=== PATIENT | male | born 1980 | race Caucasian/White ===

== ENCOUNTER 2024-05-31 10:29 | Outpatient (REF) | payer OTHER, SELFPAY ==
--- NOTE | ~2024-05-31 | XR_ITS ---
EXAMINATION: XR CERVICAL SPINE CLINICAL INFORMATION: Radiculopathy, cervical region M54.12. COMPARISON: MR Cervical spine without contrast 09/27/2022 TECHNIQUE: AP and lateral views of the cervical spine, inclusive of flexion and extension views, were obtained. FINDINGS: The vertebral alignment is normal. No evidence of instability with flexion or extension. No intrinsic bony abnormality. Intervertebral disc spacer seen at the C5/6. The endplates and posterior elements are normal. No fracture or subluxation. The surrounding prevertebral soft tissues are unremarkable. XR/XR cervical spine 4V IMPRESSION: Intervertebral disc spacer at C5/6. No acute process. Electronically signed by: Theodore Montiel MD 06/18/2024 11:29 AM [facility]
== END 2024-05-31 10:30 | disposition home or self-care (01) ==
LOC: HO.HOSX 10:29
PROVIDERS: PCP Internal Medicine; Visit Provider Neurological Surgery
DX: M54.12 Radiculopathy, cervical region (principal); Z98.1 Arthrodesis status
CPT/HCPCS: 72050

== ENCOUNTER 2024-05-31 10:29 | Outpatient (AMB) | payer OTHER, SELFPAY ==
--- NOTE | 2024-05-31 10:32 | A.SPINEOV_ITS ---
Vital Signs 05/31/24 10:36 Height 5 ft 7 in Weight 200 lb BMI 31.3 Intake Visit Reasons: Neck pain Intake Note: Mr. Gayle is here today c/o Neck pain. Control Panel Operator Required: No Allergies codeine Adverse Reaction (Mild, Verified 05/31/24 10:37) upset stomach Physical Exam Vital Signs: BMI result Body Mass Index 31.3 Assessment & Plan Assessment & Plan (1) Status post cervical spinal arthrodesis: Code(s): Z98.1 - Arthrodesis status Category: Surgical (2) Cervical radiculopathy: Code(s): M54.12 - Radiculopathy, cervical region Category: Medical Plan Dear colleague Thank you for referring Cory Gayle to the office today with a chief complaint of severe left-sided neck and arm pain. HPI: This 43-year-old male originally had a left-sided cervical radiculopathy radiating down to his 3rd an index finger. He underwent a C5-6 total disc arthropathy in [address] Carrington at [facility]. He did well for a month after all the symptoms returned. Moreover he also developed same radiation into his right arm. Dr. Guardado took x-rays and told him that the implant was correct and advised chiropractic therapy. In the meantime the right-sided symptoms are intermittently but the left side continues to be severe. He complains of a stabbing pain in his shoulder blade that radiates down to his arm into the 2nd and 3rd finger. There is no weakness. 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 The following conservative treatment options were tried without success antiinflammatories, tylenol, physician guided home exercise plan, cortisone shots PMH: Carpal tunnel syndrome, right shoulder repair, RA, anxiety Medications: None Allergies: NKDA Social history: Nonsmoker Physical Exam: Pleasant male. He is uncomfortable. Spurling test is positive with radiating pain in his left arm. Motor and sensory exam is intact. Radiological Studies: MRI done at [facility] on 05/02/2024 so status post C5-6 disc arthroplasty. There is cord compression and signal change at that level and the report mentioned an ongoing disc herniation eccentric towards the right side. The C6-7 level shows [id number] left C7 foraminal stenosis. And flexion- extension x-ray shows horizontal translation in flexion. Impression/Plan: This patient is suffering from severe predominantly left cervical radiculopathy, which I think is related to malfunction of the artificial disc implant as horizontal translation is seen on flexion with opening of the posterior part of the artificial disc, which is a known problem with the Mobic C artificial disc. The patient is going to get his preoperative MRI and postoperative imaging for me on a CD to review before we make a final decision to explant the device and took converted into a fusion. Thank you for allowing me to participate in your patients care. total time spent was 50 minutes in counseling ,coordination of plan, personal review of imaging, surgical decision making and subsequent plan Bret Vital MD, PhD Spine Fellowship Trained Neurosurgeon Director, [facility] [place] [facility] Orders: Orders XR cervical spine 4V Today M54.12 - Radiculopathy, cervical region, Z98.1 - Arthrodesis status Coding Level of Care Code New Pt Level 4 (51799) Diagnoses Status post cervical spinal arthrodesis Z98.1 Cervical radiculopathy M54.12
[2024-05-31 10:36] VITALS: BMI 31.3
--- OUTSIDE RECORDS SUMMARY | 2024-06-05 07:22 | XMS_ITS ---
Author Name [facility] Organization Unknown History of Medication Use Medication Directions Dispensed Refills Start Date End Date Stat fluticasone (FLONASE) 50 MCG/ACT nasal spray spray/apply 1 spray in each nostril daily. 11/21/2023 active ibuprofen (ADVIL,MOTRIN) 600 MG tablet Take 800 mg by mouth every 6 (six) hours as needed for pain. 11/21/2023 active doxepin (SINEquan) 10 MG capsule 11/21/2023 active Magnesium 400 MG CAPS Take 400 mg by mouth daily. 11/21/2023 active SUMAtriptan (IMITREX) 50 MG tablet Take 1 tablet (50 mg total) by mouth every 2 (two) hours as needed for migraine. 11/21/2023 active venlafaxine (EFFEXOR-XR) 150 MG 24 hr capsule Take 150 mg by mouth daily. 11/21/2023 aborted omeprazole (PriLOSEC) 20 MG capsule Take 1 capsule (20 mg total) by mouth daily. 11/21/2023 active Riboflavin 400 MG CAPS Take 400 mg by mouth daily. 11/21/2023 active gabapentin (NEURONTIN) 300 MG capsule Take 1 capsule (300 mg total) by mouth 3 (three) times a day. 11/21/2023 active desvenlafaxine (PRISTIQ) 100 MG 24 hr tablet 11/21/2023 active cloNIDine (CATAPRES) tablet 0.1 mg Take 0.1 mg by mouth 2 (two) times a day. 11/21/2023 aborted docusate sodium (COLACE) 100 MG capsule Take 1 capsule (100 mg total) by mouth 2 (two) times a day. 11/21/2023 active diclofenac (VOLTAREN) 75 MG EC tablet Take 75 mg by mouth 2 (two) times a day. 11/21/2023 aborted clonazePAM (KlonoPIN) 0.5 MG tablet Take 0.5 mg by mouth 2 (two) times a day as needed for anxiety. 11/21/2023 aborted buprenorphine HCl-naloxone HCl 8-2 mg (SUBOXONE) sublingual film Place 1 each under the tongue daily. 11/21/2023 active Tofacitinib Citrate (Xeljanz) 5 MG TABS Take 5 mg by mouth. 11/21/2023 active adalimumab (HUMIRA PEN) 40 MG/0.4ML prefilled pen injector Inject under the skin. 11/21/2023 aborted methocarbamol (ROBAXIN) 500 MG tablet Take 500 mg by mouth 4 (four) times a day. 11/21/2023 aborted Problems Problem Status Onset Date Problem Type Date of Resolution Source Migraine without aura and without status migrainosus, not intractable active EncounterDiagnosisAct CTT HNEMG
== END 2024-05-31 11:30 | disposition home or self-care (01) ==
PROVIDERS: PCP Internal Medicine; Visit Provider Neurological Surgery
DX: Z98.1 Arthrodesis status (principal); M54.12 Radiculopathy, cervical region
CPT/HCPCS: 99204

== ENCOUNTER 2024-06-07 14:39 | Outpatient (AMB) | payer OTHER, SELFPAY ==
--- NOTE | 2024-06-07 14:55 | A.SPINEOV_ITS ---
Intake Visit Reasons: F/u Intake Note: Mr. Gayle is here today for a F/u. 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 As you know he underwent an artificial disc replacement C5-6 at [facility] for left cervical radiculopathy. Three months postoperatively with the symptoms returned. The latest MRI report mentions spinal cord compression with myelomalacia with which I agree. Moreover, cervical x-rays shows opening of the posterior part of the artificial disc with flexion in his slight horizontal translation. I have seen this problem occurring with the Mobic C requiring conversion to a cervical fusion. Clinically, this patient fits exactly the pattern then I have seen in my practice with Mobic C artificial disc failures. Therefore I recommended a conversion of the artificial disc to a fusion. He is going to discuss it with his and will let me know if he wants to proceed. I spent 20 minutes in his consult to review imaging and to discuss plan of care. 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
== END 2024-06-07 16:08 | disposition home or self-care (01) ==
PROVIDERS: PCP Internal Medicine; Visit Provider Neurological Surgery
DX: T84.216A Breakdown (mechanical) of internal fixation device of vertebrae, initial encounter (principal); M54.12 Radiculopathy, cervical region
CPT/HCPCS: 99213

== ENCOUNTER → 2024-06-07 14:39 | Outpatient (BNVA) | payer OTHER, SELFPAY | PROVIDERS: PCP Internal Medicine; Visit Provider Neurological Surgery ==

== ENCOUNTER → 2024-07-10 10:37 | Outpatient (BNV) | payer OTHER, SELFPAY | PROVIDERS: PCP Internal Medicine; Visit Provider Internal Medicine Cardiovascular Disease | DX: Z01.810 Encounter for preprocedural cardiovascular examination (principal) | CPT/HCPCS: 93010 ==

== ENCOUNTER → 2024-07-25 05:52 | Outpatient (BNV) | payer OTHER, SELFPAY | PROVIDERS: PCP Internal Medicine; Visit Provider Physician Assistant | DX: M54.12 Radiculopathy, cervical region (principal); T84.216A Breakdown (mechanical) of internal fixation device of vertebrae, initial encounter | CPT/HCPCS: 20930; 22551; 22845; 22853; 22864; 99499 ==

== ENCOUNTER 2024-08-15 08:59 | Outpatient (AMB) | payer OTHER, SELFPAY ==
--- NOTE | 2024-08-15 09:02 | A.SPINEOV_ITS ---
Intake Visit Reasons: 1st post op Intake Note: Mr. Gayle is here today for his 1st post op. Retail Sales Clerk Required: No Allergies codeine Adverse Reaction (Mild, Verified 08/15/24 09:03) upset stomach Assessment & Plan Assessment & Plan (1) Status post cervical spinal arthrodesis: Code(s): Z98.1 - Arthrodesis status Category: Medical Plan procedure: Removal of artificial disc at C5-6 and subsequent ACDF at C5-6. Cory is a pleasant 44 year old male who underwent C5-6 ACDF a few weeks ago with Dr. Vital. To recap he was initially evaluated in clinic for bilateral cervical radiculopathy, left worse than right. Today, he reports good resolution of his severe left-sided cervical radiculopathy, and states his right-sided also has not had any pain since surgery. He does still have some posterior neck pain and some pain in his left shoulder, but this is very minimal compared to the pain he had prior to surgery. He asked several questions regarding postoperative healing course, all of which I answered to the best of my ability. 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 This seems entirely reasonable, as he should not immediately return to heavy lifting and heavy manual labor. I provided him with a note for this at the end of this visit. No new neurological deficits. The patient ambulates well and rises from seated position without difficulty. His anterior incision site appears closed, well healing, with no signs of drainage or leakage. I would like to follow up with Cory again in 6 weeks with a set of x-rays to review with him. Shahid Vital MD,PhD [facility] Coding Level of Care Code Global (55139) Diagnoses Status post cervical spinal arthrodesis Z98.1
--- OUTSIDE RECORDS SUMMARY | 2024-08-15 09:31 | XMS_ITS | Encounter Summary ---
Author Organization [employer] Address [address] [facility] [address] [place] [address] Care Team Providers Care Smearer Name Role Phone Unavailable Primary Care Provider Unavailabl e Encounter Details Date Type Department Care Team (Late st Contact Info) Description 02/14/2024 Orders Only [facility] [address] [place] [phone] Chelsey Treviño MD [address] [place] [phone] Constipation, unspecified constipation type (Primary Dx) Social History Tobacco Use Types Packs/Day Years Used Date Smoking Tobacco: Former Cigarettes Smokeless Tobacco: Never Sex and Gender Information Value Date Recorded Sex Assigned at Male 04/25/2022 10:36 AM EDT Legal Sex Male 10:36 AM EDT Gender Identity Male 04/25/2022 10:36 AM EDT Sexual Orientation Straight 04/25/2022 10 :36 AM EDT documented as of this encounter Plan of Treatment Upcoming Encounters Date Type Department Care Team (Late st Contact Info) Description 09/02/2024 1:00 PM EDT Telemedicine [facility] [address] [place] [phone] Jose Alberto Mojica MD [address] [place] [address] documented as of this encounter Visit Diagnoses Diagnosis Constipation, unspecified constipation type- Primary documented in this encounter
--- OUTSIDE RECORDS SUMMARY | 2024-08-15 09:31 | XMS_ITS | Clinical Summary ---
Author Organization [employer] Address [address] [facility] 7[address] [place] [address] Care Team Providers Care Health Education Aide Name Role Phone Unavailable Primary Care Provider Unavailabl e Allergies No known active allergies Medications clonazePAM (KlonoPIN) 0.5 MG tablet Take 0.5 mg by mouth 1 (one) time each day. Active gabapentin (Neurontin) 600 MG tablet Take 600 mg by mouth 2 times daily. Active temazepam (Restoril) 22.5 MG capsule Take 22.5 mg by mouth if needed at bedtime. Active sennosides (Senokot) 8.6 MG tabletIndications :Constipation, unspecified constipation type 1-2 tabs po nightly prn constipation 60 tablet 11 02/14/20 24 Active docusate sodium (Colace) 100 MG capsule Take 1 capsule (100 mg) by mouth if needed in the morning and at bedtime for constipation. 60 capsule 5 03/18/20 24 025 Active lidocaine (Lidoderm) 5 % patch Apply 2 patches topically Once per day. Remove & discard patch within 12 hours or as directed by . 60 patch 3 04/15/20 24 025 Active Buprenorphine HCl-Naloxone HCl (Suboxone) 8-2 MG SL filmIndications:O pioid dependence, uncomplicated (CMS/HCC) Place 1 Film under the tongue 3 times daily. 84 Film 1 07/01/19 25 025 Active Active Problems Problem Noted Date Diagnosed Date Alcohol dependence 10/31/2022 Major depressive disorder 10/31/2022 Uncomplicated opioid dependence 10/31/2022 Rheumatoid arthritis 10/31/2022 Cervical disc disease 10/31/2022 Encounters Date Type Department Care Team Description 07/08/2024 11:00 AM EST Clinical Support [facility] [address] [place] [phone] Yanet García RN Uncomplicated opioid dependence (CMS/HCC) (Primary Dx) 07/08/2024 Travel 07/01/2024 Refill [facility] [address] [place] [address] Yanet García RN Opioid dependence, uncomplicated (CMS/HCC) 07/01/2024 Refill [facility] [address] [place] [address] Yanet García RN Opioid dependence, uncomplicated (CMS/HCC) from Last 3 Months Social History Tobacco Use Types Packs/Day Years Used Date Smoking Tobacco: Former Cigarettes Smokeless Tobacco: Never Tobacco Cessation:Counseling Given: Not Answered Sex and Gender Information Value Date Recorded Sex Assigned at Male 04/25/2022 10:36 AM EDT Legal Sex Male 10:36 AM EDT Gender Identity Male 04/25/2022 10:36 AM EDT Sexual Orientation Straight 04/25/2022 10 :36 AM EDT Last Filed Vital Signs Vital Sign Reading Time Taken Comments Blood Pressure 120/70 03/06/2020 12:09 AM EDT Pulse 78 03/06/2020 12:09 AM EDT Temperature - - Respiratory Rate - - Oxygen Saturation - - Inhaled Oxygen Concentration - - Weight 103 kg (228 lb) 03/06/2020 12:09 AM EDT Height - - Body Mass Index - - Plan of Treatment Upcoming Encounters Date Type Department Care Team (Late st Contact Info) Description 09/02/2024 1:00 PM EDT Telemedicine [facility] [address] [place] [phone] Jose Alberto Mojica MD [address] [place] [address] Health Maintenance Due Date Last Done Comments Depression Screening 1981 Lipid Panel 1981 SDOH Screening 1981 Alcohol/Substance Use Screening 1993 Family Planning (PISQ) 1996 Hepatitis B Vaccines (2 of 3 - 19+ 3-dose series) 11/19/2012 10/22/2012 COVID-19 Vaccine ( season) 2024 07/13/2021, 10/08/2020 Influenza Vaccine (#1) 2024 3, 03/07/2022, 06/07/2021, Additional history exists Tobacco Screening 03/18/2025 03/18/2024 Zoster Vaccines (1 of 2) 2031 DTaP/Tdap/Td Vaccines (3 - Td or Tdap) 08/16/2032 08/16/2022, 02/03/2011 RSV Patients and Patients Aged 60 years or older (1 - 1-dose 75+ series) 2056 Hepatitis A Vaccines Aged Out 10/22/2012 No long er eligible based on patient's age to complete this topic HIV Screening Completed 10/04/2021, 08/19/2019 Hepatitis C Screening Completed 10/04/2021, 020 HIB Vaccines Aged Out No longer eligi ble based on patient's age to complete this topic HPV Vaccines Aged Out No longer eligi ble based on patient's age to complete this topic IPV Vaccines Aged Out No longer eligi ble based on patient's age to complete this topic Meningococcal Vaccine Aged Out No saray michael eligible based on patient's age to complete this topic Pneumococcal Vaccine: Pediatrics (0 to 5 Years) and At-Risk Patients (6 to 49) Years) Aged Out No longer eligible based on patient's age to complete this topic RSV under 20 months Aged Out No longe r eligible based on patient's age to complete this topic Rotavirus Vaccines Aged Out No longer eligible based on patient's age to complete this topic Procedures Procedure Name Priority Date/Time Associated Diagnosis Comments POCT ALTON-14 URINE DRUG SCREEN Routine 07/08/2024 11:01 AM EST Uncomplicated opioid dependence (CMS/HCC) ZZZ HISTORICAL HEPATITIS C AB W/REFL TO HCV RNA, QN, PCR Routine 10/04/2021 1:28 PM EDT HIV 1/2 ANTIGEN/ANTIBODY, FOURTH GENERATION W/RFL Routine 10/04/2021 1:28 PM EDT from Last 3 Months or Most Recently Relevant to Health Maintenance Results * POCT ALTON-14 Urine Drug Screen (07/08/2024 11:01 AM EST) THC Negative Cocaine Screen, Urine Negative Opiate Screen, Urine Negative Methamphetamine Screen Urine Negative Amphetamine Screen, Urine Negative Benzodiazepines Screen, Urine Positive Barbiturate Screen, Urine Negative Methadone Screen, Urine Negative Buprenophine Screen, Urine Positive TCA, Urine Negative MDMA Urine Negative ng/mL Oxycodone Screen, Urine Negative Phencyclidine (PCP), Urine Negative Propoxyphene, Urine Negative Fentanyl, Urine Negative Urine Urine specimen obtained by clean catch procedure / Unknown 07/08/2024 11:01 AM EST Key Thomas MD POINT OF CARE TEST ENTER/NOHEMY T ORDERABLES Final Result * HEPATITIS C AB W/REFL TO HCV RNA, QN, PCR (10/04/2021 1:28 PM EDT) Pathologist [facility] HEPATITIS C ANTIBODY NON-REACT MODE NON-REACT MODE [facility] INDEX 0.01 <1.00 [facility] Comment: ?? HCV antibody was non-reactive. There is no laboratory ?? evidence of HCV infection. ?? In most cases, no further action is required. However, if recent HCV exposure is suspected, a test for HCV RNA (test code 51554) is suggested. ?? For additional information please refer to http://education.[employer]/faq/ULK71u3 (This link is being provided for informational/ educational purposes only.) ?? 10/04/2021 1:28 PM EDT Jose Alberto Mojica MD HISTORICAL/NON ORDERABLE LABS Fi nal Result [facility] [address] * HIV 1/2 ANTIGEN/ANTIBODY,FOURTH GENERATION W/RFL (10/04/2021 1:28 PM EDT) Pathologist [facility] HIV-1/2 ANTIGEN AND ANTIBODIES, 4TH GENERATION W/ REFLEX NON-REACT MODE NON-REACT MODE [facility] Comment: HIV-1 antigen and HIV-1/HIV-2 antibodies were not detected. There is no laboratory evidence of HIV infection. ?? PLEASE NOTE: This information has been disclosed to you from records whose confidentiality may be protected by state law. ??If your state requires such protection, then the state law prohibits you from making any further disclosure of the information without the specific written consent of the person to whom it pertains, or as otherwise permitted by law. A general authorization for the release of medical or other information is NOT sufficient for this purpose. ? For additional information please refer to http://education.[employer]/faq/LTS999 (This link is being provided for informational/ educational purposes only.) ? The performance of this assay has not been clinically validated in patients less than 2 years old. ?? 10/04/2021 1:28 PM EDT us Jose Alberto Mojica MD LAB BLOOD ORDERABLES Final Resul t Performing Organization Address City/State/[facility] Co co Phone Number [facility] [address] from Last 3 Months or Most Recently Relevant to [place] [address] [facility]
--- OUTSIDE RECORDS SUMMARY | 2024-08-15 09:31 | XMS_ITS | Encounter Summary ---
Author Organization [facility] Address [address] [place] [address] Care Team Providers Care Glue Mounter Operator Name Role Phone Gary Benedict MD Primary Care Provider [phone] Encounter Details Date Type Department Care Team (Late st Contact Info) Description 04/23/2024 11:30 AM EDT Hospital Encounter TH HISTORIC ENCOUNTERS EASTERN CONVERSION ONLY [facility] [address] [place] [phone] Social History Tobacco Use Types Packs/Day Years Used Date Smoking Tobacco: Former Cigarettes 0.8 20.7 0 06/26/1994 - 02/24/2015 Smokeless Tobacco: Never Alcohol Use Standard Drinks/Week Comments No 0 (1 standard drink = 0.6 oz pur e alcohol) Sex and Gender Information Value Date Recorded Sex Assigned at Not on file Legal Sex Male 7:09 AM EST Gender Identity Not on file Sexual Orientation Not on file documented as of this encounter Plan of Treatment Upcoming Encounters Date Type Department Care Team (Late st Contact Info) Description 09/05/2024 11:00 AM EDT Office Visit Bariatric Surgery - [place] [address] [phone] Kirsten Vegas MD [address] [address] 11/26/2024 4:00 PM EDT Office Visit Adult Medicine [address] [place] [phone] Gary Benedict MD [address] [place] [phone] 12/19/2024 10:30 AM EDT Office Visit [facility] [place] [address] [phone] Marianna Kincaid MD 175 [facility] [address] [place] [phone] documented as of this encounter Visit Diagnoses Not on filedocumented in this encounter Care Teams Glue Mounter Operator Relationship Specialty Start Date End Date Gary Benedict MD [address] [place] [phone] PCP - General Internal Medicine 11/15/19 documented as of this encounter
--- OUTSIDE RECORDS SUMMARY | 2024-08-15 09:31 | XMS_ITS | Clinical Summary ---
Author Organization [facility] Address [address] [place] [address] Care Team Providers Care Lockstitch Coat Joiner Name Role Phone Gary Benedict MD Primary Care Provider [phone] Allergies Active Allergy Reactions Criticality Noted Date Comments Codeine 02/07/2020 Medications Medication Sig Dispensed Refills Start Date End Date Status buprenorphine HCl-naloxone HCl 8-2 mg (SUBOXONE) sublingual film Place 1 each under the tongue daily. 0 Active docusate sodium (COLACE) 100 MG capsule Take 1 capsule (100 mg total) by mouth 2 (two) times a day. 0 Active gabapentin (NEURONTIN) 300 MG capsule Take 1 capsule (300 mg total) by mouth 3 (three) times a day. 0 Active ibuprofen (ADVIL,MOTRIN) 600 MG tablet Take 800 mg by mouth every 6 (six) hours as needed for pain. 0 Active omeprazole (PriLOSEC) 20 MG capsule Take 1 capsule (20 mg total) by mouth daily. 0 Active desvenlafaxine (PRISTIQ) 100 MG 24 hr tablet 0 07/11/2023 Active doxepin (SINEquan) 10 MG capsule 0 07/03/2023 Active Tofacitinib Citrate (Xeljanz) 5 MG TABS Take 5 mg by mouth. 0 04/14/2021 Active Magnesium 400 MG CAPS Take 400 mg by mouth daily. 30 capsule 3 07/18/2023 Active Riboflavin 400 MG CAPS Take 400 mg by mouth daily. 30 capsule 3 07/18/2023 Active SUMAtriptan (IMITREX) 100 MG tablet TAKE 1 TABLET BY MOUTH EVERY 2 HOURS NEEDED FOR MIGRAINE MAX OF 2 TABLETS PER 24 HOURS 10 tablet 5 09/18/2023 Active SUMAtriptan (Imitrex) 100 MG tablet Take 1 tablet (100 mg total) by mouth every 2 (two) hours as needed for migraine (maximum 2 tablets in 24 hr). 10 tablet 0 10/25/2023 Active SUMAtriptan (Imitrex) 100 MG tablet Take 1 tablet (100 mg total) by mouth every 2 (two) hours as needed for migraine (maximum 2 tablets in 24 hr). 10 tablet 0 10/23/2023 Active Active Problems No known active problems Family History Medical History Relation Name Comments Arthritis Mother said to have RA Relation Name Status Comments Mother Social History Tobacco Use Types Packs/Day Years Used Date Smoking Tobacco: Former Smokeless Tobacco: Never Tobacco Cessation:Counseling Given: Not Answered Comments:quit 6 years ago Alcohol Use Standard Drinks/Week Comments No 0 (1 standard drink = 0.6 oz pur e alcohol) Sex and Gender Information Value Date Recorded Sex Assigned at Not on file Gender Identity Not on file Sexual Orientation Not on file Job Start Date Occupation Industry Not on file Not on file Not on file Last Filed Vital Signs Vital Sign Reading Time Taken Comments Blood Pressure 159/93 03/18/2024 11:32 AM EDT Pulse 85 03/18/2024 11:32 AM EDT Temperature 35.9 ??C (96.6 ??F) 09/18/2023 11:25 AM E DT Respiratory Rate - - Oxygen Saturation 96% 09/18/2023 11:25 AM EDT Inhaled Oxygen Concentration - - Weight 101.2 kg (223 lb) 03/18/2024 11:32 AM EDT Height 170.2 cm (5' 7 ) 03/18/2024 11:32 AM EDT Body Mass Index 34.93 03/18/2024 11:32 AM EDT Plan of Treatment Health Maintenance Due Date Last Done Comments Hepatitis B Vaccines (1 of 3 - 3-dose series) 1981 Hepatitis C Screening 1981 COVID-19 Vaccine (#1) 01/12/1982 Depression Screening 1993 BMI Counseling 1999 Preventative Health Evaluation 1999 Influenza Vaccine (#1) 2024 , 06/07/2021, 05/11/2020, Additional history exists DTap / Tdap / Td (3 - Td or Tdap) 08/16/2032 08/16/2022, 02/03/2011 Pneumococcal Vaccine Aged Out No long er eligible based on patient's age to complete this topic RSV Ped < 20 months Aged Out No longe r eligible based on patient's age to complete this topic Care Teams Lockstitch Coat Joiner Relationship Specialty Start Date End Date Gary Benedict MD PCP - General Internal Medicine 02/11/20
--- OUTSIDE RECORDS SUMMARY | 2024-08-15 09:32 | XMS_ITS | Encounter Summary ---
Author Organization [employer] Address [address] [place] [address] [address] [place] [address] Care Team Providers Care Engine Repairer Name Role Phone Unavailable Primary Care Provider Unavailabl e Reason for Visit * Reason Comments Med Refill Encounter Details Date Type Department Care Team (Late st Contact Info) Description 12/25/2023 Refill [facility] [address] [place] [phone] Jose Alberto Mojica MD [address] [place] [address] [phone] Opioid dependence, uncomplicated (CMS/HCC) Social History Tobacco Use Types Packs/Day Years [...] Info) Description 09/02/2024 1:00 PM EDT Telemedicine [facility] [address] [place] [address] [phone] Jose Alberto Mojica MD [address] [place] [address] [phone] documented as of this encounter Visit Diagnoses Diagnosis Opioid dependence, uncomplicated (CMS/HCC) documented in this encounter
--- OUTSIDE RECORDS SUMMARY | 2024-08-15 09:32 | XMS_ITS | Encounter Summary ---
Author Organization [employer] Address [address] [place] [address] [address] [place] [address] Care Team Providers Care Set Staff Fitter Name Role Phone Unavailable Primary Care Provider Unavailabl e Encounter Details Date Type Department Care Team (Late st Contact Info) Description 09/30/2022 Orders Only [facility] [address] [place] [phone] Yanet García RN Uncomplicated opioid dependence (CMS/HCC) (Primary Dx) Social History Tobacco Use Types Packs/Day Years Used Date Smoking Tobacco: Never Assessed Sex and Gender Information Value Date Recorded Sex Assigned at Male 04/25/2022 10:36 AM EDT Legal Sex Male 10:36 AM EDT Gender Identity Male 04/25/2022 10:36 AM EDT Sexual Orientation Straight 04/25/2022 10 :36 AM EDT documented as of this encounter Plan of Treatment Upcoming Encounters Date Type Department Care Team (Late st Contact Info) Description 09/02/2024 1:00 PM EDT Telemedicine [facility] [address] [place] [address] [phone] Jose Alberto Mojica MD [address] [place] [phone] Scheduled Orders Name Type Priority Associated Diagnoses Orde r Schedule Hepatic Function Panel Lab Routine Uncomplicated opioid dependence (CMS/HCC) Expected: 09/30/2022 (Approximate), Expires: 10/01/2023 Hepatitis C Antibody with Reflex to HCV, RNA, Quantitative, Real-Time PCR Lab Routine Uncomplicated opioid dependence (CMS/HCC) Expected: 09/30/2022 (Approximate), Expires: 10/01/2023 HIV-1/2 Antigen and Antibodies, Fourth Generation, with Reflexes Lab Routine Uncomplicated opioid dependence (CMS/HCC) Expected: 09/30/2022 (Approximate), Expires: 10/01/2023 QUANTIFERON TB GOLD Lab Routine Uncomplicated opioid dependence ([facility]) Expected: 09/30/2022 (Approximate), Expires: 10/01/2023 RPR (Monitor) with Reflex to??Titer Lab Routine Uncomplicated opioid dependence ([facility]/HCC) Expected: 09/30/2022 (Approximate), Expires: 10/01/2023 documented as of this encounter Visit Diagnoses Diagnosis Uncomplicated opioid dependence ([facility])- Primary documented in this encounter
--- OUTSIDE RECORDS SUMMARY | 2024-08-15 09:32 | XMS_ITS | Encounter Summary ---
Author Organization [employer] Address [address] [place] [address] [address] [place] [address] Care Team Providers Care Cashier Clerk Name Role Phone Unavailable Primary Care Provider Unavailabl e Encounter Details Date Type Department Care Team (Late st Contact Info) Description 11/03/2023 Orders Only [facility] [address] [place] [phone] Yanet García RN Uncomplicated opioid dependence (CMS/HCC) Social History Tobacco Use Types Packs/Day [...] Description 09/02/2024 1:00 PM EDT Telemedicine [facility] [address] [place] [address] [phone] Jose Alberto Mojica MD [address] [place] [phone] Scheduled Orders Name Type Priority Associated Diagnoses Orde r Schedule Hepatic Function Panel Lab Routine Uncomplicated opioid dependence (CMS/HCC) Expected: 11/03/2023 (Approximate), Expires: 11/02/2024 Hepatitis C Antibody with Reflex to HCV, RNA, Quantitative, Real-Time PCR Lab Routine Uncomplicated opioid dependence (CMS/HCC) Expected: 11/03/2023 (Approximate), Expires: 11/02/2024 HIV-1/2 Antigen and Antibodies, Fourth Generation, with Reflexes Lab Routine Uncomplicated opioid dependence (CMS/HCC) Expected: 11/03/2023 (Approximate), Expires: 11/02/2024 Syphilis Screen Lab Routine Uncomplicated opioid dependence ([facility]/HCC) Expected: 11/03/2023 (Approximate), Expires: 11/02/2024 T-SPOT??.TB Lab Routine Uncomplicated opioid dependence ([facility]/HCC) Expected: 11/03/2023 (Approximate), Expires: 11/02/2024 documented as of this encounter Visit Diagnoses Diagnosis Uncomplicated opioid dependence ([facility]/HCC) documented in this encounter
--- OUTSIDE RECORDS SUMMARY | 2024-08-15 09:32 | XMS_ITS | Encounter Summary ---
Author Organization [employer] Address [address] [place] [address] [address] [place] [address] Care Team Providers Care Prevention Rn Name Role Phone Unavailable Primary Care Provider Unavailabl e Reason for Visit * Reason Comments Med Refill Encounter Details Date Type Department Care Team (Late st Contact Info) Description 07/13/2022 Refill [facility] [address] [place] [address] [phone] Joes Alberto Mojica MD [address] [place] [address] [phone] Opioid dependence, uncomplicated (CMS/HCC) Social History Tobacco Use Types Packs/Day Years Used Date Smoking Tobacco: Never Assessed Sex and Gender Information Value Date Recorded Sex Assigned at Male 04/25/2022 10:36 AM EDT Legal Sex Male 10:36 AM EDT Gender Identity Male 04/25/2022 10:36 AM EDT Sexual Orientation Straight 04/25/2022 10 :36 AM EDT COVID-19 Exposure Response Date Recorded In the last 10 days, have yo u been in contact with someone who was confirmed or suspected to have Coronavirus/COVID-19? No / Unsure 07/12/2022 12:47 PM EST documented as of this encounter Plan of Treatment Upcoming Encounters Date Type Department Care Team (Late st Contact Info) Description 09/02/2024 1:00 PM EDT Telemedicine [facility] [address] [place] [address] [phone] Jose Alberto Mojica MD [address] [place] [address] [phone] documented as of this encounter Visit Diagnoses Diagnosis Opioid dependence, uncomplicated (CMS/HCC) documented in this encounter
--- OUTSIDE RECORDS SUMMARY | 2024-08-15 09:32 | XMS_ITS | Clinical Summary ---
Author Organization [address] Address Counts include 234 beds at the [facility] [place] [phone] Phone Care Team Providers Care Door Hanger Name Role Phone Gary Benedict MD Primary Care Provider [phone] Allergies Active Allergy Reactions Criticality Noted Date Comments Codeine Other,GI intolerance Low 11/27/2009 Stomach pain Medications ibuprofen (ADVIL,MOTRIN) 600 mg tablet Take 800 mg by mouth every 6 (six) hours as needed for pain. Active desvenlafaxine succinate (PRISTIQ) 100 mg 24 hr tablet 07/11/19 24 Active docusate sodium (COLACE) 100 mg capsule Take 1 capsule (100 mg total) by mouth 2 (two) times a day. Active fluticasone propionate (FLONASE) 50 mcg/actuation nasal spray spray/apply 1 spray in each nostril daily. Active omeprazole (PriLOSEC) [address] capsule Take 1 capsule (20 mg total) by mouth 1 (one) time each day. Active SUMAtriptan (IMITREX) 100 mg tablet Take 1 tablet (100 mg total) by mouth every 2 hours as needed. 09/18/19 24 Active diclofenac (VOLTAREN) 50 mg EC tablet Take 1 Tablet by mouth 2 times daily. Active temazepam (RESTORIL) 30 mg capsule Active buprenorphine-n aloxone (Suboxone) 8-2 mg per SL film Take 1 Film by mouth 3 times daily. Active desvenlafaxine 50 mg tablet extended release 24 hr Active gabapentin (NEURONTIN) 600 mg tablet Take 2 Tablets by mouth 3 times daily. Active ibuprofen (ADVIL,MOTRIN) 800 mg tablet Take 1 tablet by mouth 3 times daily (with meals). Active predniSONE (DELTASONE) 5 mg tablet Take 1 tablet by mouth daily. Active tofacitinib (Xeljanz) 5 mg tablet Take 5 mg by mouth 2 times daily. Active omeprazole (PRILOSEC) 20 mg tablet,delayed release (DR/EC) Take 1 Tab by mouth 2 times daily. Active topiramate (TOPAMAX) 50 mg tablet Take 1 tablet (50 mg total) by mouth 1 (one) time each day. for 90 days 90 each 3 06/20/20 24 Active phentermine 15 mg capsuleIndicati ons:Class 1 obesity due to excess calories without serious comorbidity with body mass index (BMI) of 31.0 to 31.9 in adult Take 1 capsule (15 mg total) by mouth 2 (two) times a day. Max Daily Amount: 30 mg 60 each 07/11/19 25 Active sildenafiL (VIAGRA) 100 mg tablet START WITH 1/2 TABLET AND INCREASE TO 1 TABLET NEEDED 30-60 MINUTES BEFORE INTERCOURSE, MAX OF 1 PER DAY 10 tablet 1 07/23/19 25 Active betamethasone valerate (VALISONE) 0.1 % cream APPLY SPARINGLY TO THE AFFECTED AREA ON HANDS TWICE DAILY 30 g 2 08/02/19 25 Active atorvastatin (LIPITOR) 10 mg tablet Take 1 tablet (10 mg total) by mouth at bedtime. 90 each 1 08/05/19 25 026 Active atorvastatin (LIPITOR) 10 mg tablet Take 1 Tablet by mouth daily for 360 days. 08/31/19 24 025 Discontinued(Re order) betamethasone valerate (VALISONE) 0.1 % cream APPLY SPARINGLY TO THE AFFECTED AREA ON HANDS TWICE DAILY 07/28/19 24 025 Discontinued sildenafiL (VIAGRA) 100 mg tablet Start with 1/2 tablet and increase to 1 tablet as needed 30-60 minutes before intercourse. Max is 100mg in 24 hours. 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 RF,CCP negative. Inflammatory fluid in left knee 01/10 Sulfasalazine not tolerated and ineffective 01/10-04/12 Methotrexate caused nausea 06/12 Humira started 08/14 Humira increased to weekly dosing 05/14 05/15- humira ineffective, enbrel not covered, switch to cimzia Opiate abuse, episodic 03/27/2017 Overview (04/12/2024): Treated with methadone.tapered off 2013 Now on monthly SC Suboxone Knee pain 12/30/2016 Overview (04/12/2024): Related to workman's comp injury 11/2014. Bilateral. Orthopedic evaluation and treatment, unclear etiology. Possible neuropathy. GERD (gastroesophageal reflux disease) 7 Overview (04/12/2024): EGD 2014 normal Anxiety 06/10/2016 PLMD (periodic limb movement disorder) 6 Obstructive sleep apnea 08/31/2015 Overview (04/12/2024): Cx Pulmo FU ResScan 11/14/2015 to 12/13/2015. CPAP@ 6-16/Average 11/Max 12.3. 73% compliant with using the machine for >4 hours/day. Average use is 5.5 hours a night with AHI 6.1. 07/25/2016 to 08/23/2016. CPAP@ 6-16/Average 13.2/Max 13.7. 57% compliant with using the machine for >4 hours/day. Average use is 5.5 hours a night with AHI 1.6. Hypercholesteremia 03/28/2012 Overview (04/12/2024): 04/06---letter sent, recheck 6mo Depression 05/23/2011 Overview (04/12/2024): History of substance abuse. Persistent headaches 05/23/2011 Overview (04/12/2024): 2010---eval neg, sinus neg on CT. Sx resolved---dizziness---ENT Tobacco use disorder 02/10/2011 Encounters Date Type Department Care Team Description 06/20/2024 11:30 AM EST Office Visit [facility] [address] [place] [address] Kacey Mcgovern, [place] Migraine without aura and without status migrainosus, not intractable (Primary Dx) 05/30/2024 11:30 AM EST Office Visit [facility] [place] [address] [place] [address] Kirsten Vegas MD Class 1 obesity due to excess calories without serious comorbidity with body mass index (BMI) of 31.0 to 31.9 in adult (Primary Dx) from Last 3 Months Immunizations Name Administration Dates Next Due Hep A, Unspecified 10/22/2012 Hep B, Unspecified 10/22/2012 Influenza Quadravalent, MDCK , 0.5ml, preservative free (Flucelvax) 6mo and older 04/07/2023,06/07/2021,05/11/2020,2017 Influenza Quadravalent, MDCK , 0.5ml, with preservative (Flucelvax) 6mo and older 03/10/2017 Influenza trivalent, 0.5mL, preservative free (Fluarix; FluLaval; Fluzone) ages 6mo and older (Afluria) 3 years and older 03/16/2016,04/08/2012 Influenza, Unspecified 03/07/2022,04/16/2019 Moderna SARS-CoV-2 COVID-19, mRNA, LNP-S, preservative free 07/13/2021 Tdap Tetanus diptheria acell ular pertussis (Boostrix; Adacel) 7yo and older 08/16/2022,02/03/2011 Surgical History Surgery Date Site/Laterality Comments CARPAL TUNNEL RELEASE PROCEDURE:CARPAL TUNNEL RELEASE OTHER SURGICAL HISTORY PROCEDURE:esophagoscopy flexible transoral with biopsy OTHER SURGICAL HISTORY PROCEDURE:historical shoulder surgery ;COMMENT:both spurs OTHER SURGICAL HISTORY PROCEDURE:historical wisdom teeth extraction OTHER SURGICAL HISTORY PROCEDURE:knee arthroscopy, diagnostic OTHER SURGICAL HISTORY PROCEDURE:oral surgery procedure ;COMMENT:soft palate WISDOM TOOTH EXTRACTION PROCEDURE: HISTORICAL WISDOM TEETH EXTRACTION OTHER SURGICAL HISTORY 10/16/2014 PROCEDURE: HI ESOPHAGOSCOPY FLEXIBLE TRANSORAL WITH BIOPSY; COMMENT: Visually normal; esoph bx: normal KNEE ARTHROSCOPY 05/02/2016 Right PROCEDURE: HI ARTHROSCOPY KNEE DIAGNOSTIC W/WO SYNOVIAL BX SPX; COMMENT: Dr. Kirby MOUTH SURGERY PROCEDURE: ORAL SURGERY PROCEDURE; COMMENT: soft palate- 2019 CARPAL TUNNEL RELEASE 2013 Bilateral PROCEDURE: HI NEUROPLASTY &/TRANSPOS MEDIAN NRV CARPAL TUNNE SHOULDER SURGERY 2011 Left PROCEDURE: HISTORICAL SHOULDER SURGERY; COMMENT: bone spurs LITHOTRIPSY Left PROCEDURE: HISTORICAL LITHOTRIPSY Medical History Medical History Date Comments Rheumatoid arthritis involvi ng knee ([facility]) DX:Rheumatoid arthritis involving knee (HCC) Opiate abuse, episodic ([facility]) DX:Opiate abuse, episodic ([facility]) Knee pain DX:Knee pain GERD (gastroesophageal reflux disease) DX:GERD (gastroesophageal reflux disease) Anxiety DX:Anxiety Obstructive sleep apnea ([facility]) (pediatric) DX:Obstructive sleep apnea (adult) (pediatric) PLMD (periodic limb movement disorder) DX:PLMD (periodic limb movement disorder) Hypercholesteremia DX:Hyperchole steremia Depression DX:Depression Persistent headaches DX:Persiste nt headaches Tobacco use disorder DX:Tobacco use disorder Tobacco use disorder 02/10/2011 DX:Tobacco use disorder Rheumatoid arthritis involvi ng knee ([facility]/HCC) 05/08/2018 DX:Rheumatoid arthritis involving knee ([facility]); COMMENT: Recurrent swelling and pain since Family History Medical History Relation Name Comments Arthritis Mother said to have RA Hyperlipidemia Other 1 Hypertension Other 2 Relation Name Status Comments Mother Other 1 Other 2 Social History Tobacco Use Types Packs/Day Years Used Date Smoking Tobacco: Former Cigarettes 0.8 20.7 0 06/26/1994 - 02/24/2015 Smokeless Tobacco: Never Tobacco Cessation:Counseling Given: Not Answered Alcohol Use Standard Drinks/Week Comments No 0 (1 standard drink = 0.6 oz pur e alcohol) Sex and Gender Information Value Date Recorded Sex Assigned at Not on file Legal Sex Male 7:09 AM EST Gender Identity Not on file Sexual Orientation Not on file Obstetrics History Last Filed Vital Signs Vital Sign Reading Time Taken Comments Blood Pressure 114/77 06/20/2024 11:51 AM EST Pulse 80 06/20/2024 11:51 AM EST Temperature 35.9 ??C (96.6 ??F) 06/20/2024 11:[address] Respiratory Rate - - Oxygen Saturation 96% 06/20/2024 11:51 AM EST Inhaled Oxygen Concentration - - Weight 88.5 kg (195 lb) 06/20/2024 11:51 AM EST Height 172.7 cm (5' 8 ) 06/20/2024 11:51 AM EST Body Mass Index 29.65 06/20/2024 11:51 AM EST Plan of Treatment Upcoming Encounters Date Type Department Care Team (Late st Contact Info) Description 09/05/2024 11:00 AM EDT Office Visit [facility] [place] [address] [phone] Kirsten Vegas MD [address] [phone] 11/26/2024 4:00 PM EDT Office Visit Adult Medicine [facility] [address] [place] [address] Gary Benedict MD [address] [place] [address] 12/19/2024 10:30 AM EDT Office Visit [facility] [place] [address] [phone] Marianna Kincaid MD [address] [phone] Health Maintenance Due Date Last Done Comments Hepatitis B Vaccines (2 of 3 - 19+ 3-dose series) 11/19/2012 10/22/2012 Hepatitis A Vaccines (2 of 2 - Risk 2-dose series) 04/23/2013 10/22/2012 COVID-19 Vaccine (3 - Moderna risk series) 08/10/2021 07/13/2021, 10/08/2020 Depression Screening 06/03/2022 Social Influencers of Health Screening 06/03/2022 Influenza Vaccine (#1) 2024 3, 03/07/2022, 06/07/2021, Additional history exists Cholesterol Screening (Lipid Panel) 08/24/2028 08/25/2023 DTaP,Tdap,and Td Vaccines (3 - Td or Tdap) 08/16/2032 08/16/2022, 02/03/2011 Hepatitis C Screening Completed 07/25/2020 HIV Screening Completed 10/04/2021, 06/18/2019 HIB Vaccines Aged Out No longer eligi ble based on patient's age to complete this topic HPV Vaccines Aged Out No longer eligi ble based on patient's age to complete this topic IPV Vaccines Aged Out No longer eligi ble based on patient's age to complete this topic MMR Vaccines Aged Out No longer eligi ble based on patient's age to complete this topic Meningococcal ACWY Vaccine Aged Out N o longer eligible based on patient's age to complete this topic Meningococcal B Vacine Aged Out No lo nger eligible based on patient's age to complete this topic Pneumococcal Vaccine: Pediatrics (0 to 5 Years) and At-Risk Patients (6 to 64 Years) Aged Out No longer eligible based on patient's age to complete this topic RSV Immunization Patients Under 20 months Aged Out No longer eligible based on patient's age to complete this topic Varicella Vaccines Aged Out No longer eligible based on patient's age to complete this topic Procedures Procedure Name Priority Date/Time Associated Diagnosis Comments EXTERNAL XRAY REPORT 07/25/2024 EXTERNAL XRAY REPORT 05/31/2024 LIPID PANEL Routine 08/25/2023 HEPATITIS C SCREENING Routine 07/25/2020 HIV SCREENING Routine 06/18/2019 from Last 3 Months or Most Recently Relevant to Health Maintenance Results * External Xray Report (07/25/2024) Only the most recent of2 resultswithin the time period is included. Anatomical Region Laterality Modality Radiographic Charissa ging us Provider [facility] XR PROCEDURES Final Result * (ABNORMAL) Lipid panel (08/25/2023) LDL/HDL Ratio 4 0 - 4 Triglycerides 169(A) 0 - 150 mg/dL Cholesterol 276(A) 0 - 200 mg/dL HDL 74 >=40 mg/dL LDL Cholesterol 169(A) 0 - 100 mg/dL Blood Venous blood specimen / Unknown Result [facility] Provider LAB BLOOD ORDERABLES Carito l Result * Hepatitis C Screening (07/25/2020) [facility]ologist [facility] Hepatitis C Screening abstracted Result [facility] Provider HEALTH MAINTENANCE Edited Result - Final * HIV Screening (06/18/2019) Pathologist [facility] HIV Screening abstracted Result [facility] Provider HEALTH MAINTENANCE Edited Result - Final from Last 3 Months or Most Recently Relevant to Health Maintenance [place] [id number] [facility] Care Teams Door Hanger Relationship Specialty Start Date End Date Gary Benedict MD [address] [place], [place] [address] [address] PCP - General Internal Medicine 11/15/19
--- OUTSIDE RECORDS SUMMARY | 2024-08-15 09:32 | XMS_ITS | Encounter Summary ---
Author Organization [employer] Address [address] [place] [address] 7 [place] [address] Care Team Providers Care Desktop Support Technician Name Role Phone Unavailable Primary Care Provider Unavailabl e Reason for Visit * Reason Onset Date Comments Med Refill 12/10/2022 Encounter Details Date Type Department Care Team (Late st Contact Info) Description 12/10/2022 Refill [facility] [address] [place] [phone] Jose Alberto Mojica MD [address] [place] [address] [phone] Opioid dependence, uncomplicated (CMS/HCC) Social History Tobacco [...] Description 09/02/2024 1:00 PM EDT Telemedicine [facility] [address] [place] [phone] Jose Alberto Mojica MD [address] [place], [place] [phone] documented as of this encounter Visit Diagnoses Diagnosis Opioid dependence, uncomplicated (CMS/HCC) documented in this encounter
--- OUTSIDE RECORDS SUMMARY | 2024-08-15 09:32 | XMS_ITS | Encounter Summary ---
Author Organization [employer] Address 75 [facility] 7t [place] [address] Care Team Providers Care Heater Mechanic Name Role Phone Unavailable Primary Care Provider Unavailabl e Encounter Details Date Type Department Care Team (Late st Contact Info) Description 06/12/2023 Orders Only [facility] [address] [place] [phone] Jose Alberto Mojica MD [address] [place] [address] [phone] Social History Tobacco Use Types Packs/Day Years [...] Info) Description 09/02/2024 1:00 PM EDT Telemedicine [facility] [address] [place] [address] Jose Alberto Mojica MD 230 [place] [address] documented as of this encounter Visit Diagnoses Not on filedocumented in this encounter
== END 2024-08-15 09:22 | disposition home or self-care (01) ==
PROVIDERS: PCP Internal Medicine; Visit Provider Physician Assistant
DX: Z98.1 Arthrodesis status (principal)
CPT/HCPCS: 99024

== ENCOUNTER → 2024-08-15 08:59 | Outpatient (BNVA) | payer OTHER, SELFPAY | PROVIDERS: PCP Internal Medicine; Visit Provider Physician Assistant ==

== ENCOUNTER 2024-09-26 08:53 | Outpatient (AMB) | payer OTHER, SELFPAY ==
--- NOTE | 2024-09-26 08:56 | A.SPINEOV_ITS ---
Intake Visit Reasons: 2nd post op with Xrays Intake Note: Mr. Gayle is here today for his 2nd post op with xrays. Branch Coordinator Required: No Allergies codeine Adverse Reaction (Mild, Verified 09/26/24 09:04) upset stomach Assessment & Plan Assessment & Plan (1) Status post cervical spinal arthrodesis: Code(s): Z98.1 - Arthrodesis status Category: Surgical Plan: Procedure: C5-6 ACDF Cory is a pleasant 44-year-old male who underwent C5-[address] Vital about 2 months ago. Since surgery his primary complaint of radiculopathy has subsided, but he continues to have some posterior neck pain and left shoulder pain despite allowing the tincture of time to heal some of the acute pains from surgery. Despite this, he was completing all ADLs around his home without much issue, and is functioning fairly well. No new neurological deficits. Patient is able to ambulate well, rises from a seated position without difficulty. Incision site is closed & well healed. I would like to send him for a course of physical therapy to see if he can work out some of these residual musculoskeletal pains secondary to surgery and deconditioning. Shahid Vital MD,PhD [facility] Orders: Orders XR cervical spine 4V Today GREYSON Boyce Z90.89 - Acquired absence of other organs PT Evaluation and Treatment Today GREYSON Mcgee Z98.1 - Arthrodesis status Coding Level of Care Code Global (96832) Diagnoses Status post cervical spinal arthrodesis Z98.1
--- OUTSIDE RECORDS SUMMARY | 2024-09-26 09:04 | XMS_ITS | Encounter Summary ---
Author Organization [employer] Address [address] [place] [address] 7 [place] [address] Care Team Providers Care Baggage Porter Name Role Phone Unavailable Primary Care Provider Unavailabl e Reason for Visit * Reason Comments Med Refill Encounter Details Date Type Department Care Team (Late st Contact Info) Description 12/25/2023 Refill [facility] [address] [place] [address] [phone] Jose Alberto Mojica MD [address] [place] [address] [phone] Opioid dependence, uncomplicated (CMS/HCC) Social History Tobacco [...] Care Team (Late st Contact Info) Description 10/28/2024 1:00 PM EDT Clinical Support [facility] [address] [place] [address] Yanet García RN documented as of this encounter Visit Diagnoses Diagnosis Opioid dependence, uncomplicated (CMS/HCC) documented in this encounter
--- OUTSIDE RECORDS SUMMARY | 2024-09-26 09:04 | XMS_ITS | Encounter Summary ---
Author Organization [employer] Address 75 [facility] 7t [place] [address] Care Team Providers Care 911 Telecommunicator Name Role Phone Unavailable Primary Care Provider Unavailabl e Encounter Details Date Type Department Care Team (Late st Contact Info) Description 02/14/2024 Orders Only [facility] [address] [place] [phone] Chelsey Treviño MD 230 [place] [address] Constipation, unspecified constipation type (Primary Dx) Social [...] Description 10/28/2024 1:00 PM EDT Clinical Support [facility] [address] [place] [address] 364[address] Yanet García RN documented as of this encounter Visit Diagnoses Diagnosis Constipation, unspecified constipation type- Primary documented in this encounter
--- OUTSIDE RECORDS SUMMARY | 2024-09-26 09:04 | XMS_ITS | Encounter Summary ---
Author Organization [facility] Address [address] [place] [address] Care Team Providers Care Tool Engine Lathe Set Up Operator Name Role Phone Gary Benedict MD Primary Care Provider Encounter Details Date Type Department Care Team (Late st Contact Info) Description 04/23/2024 11:30 AM EDT Hospital Encounter [facility]ISTORIC ENCOUNTERS [facility] CONVERSION ONLY Cholo Galvan PA [address] [place] [phone] Social History Tobacco Use Types Packs/Day Years [...] Care Team (Late st Contact Info) Description 11/26/2024 4:00 PM EDT Office Visit Adult Medicine [address] [phone] Gary Benedict MD [address] [place] [phone] 12/03/2024 8:30 AM EDT Office Visit Bariatric Surgery - [address] [place] [phone] Kirsten Vegas MD 175 [facility] 120 [place] [address] 12/19/2024 10:30 AM EDT Office Visit [facility] [address] [facility] [address] [place] [phone] Marianna Kincaid MD 175 [facility] 150 [place] [phone] documented as of this encounter Visit Diagnoses Not on filedocumented in this encounter Care Teams Tool Engine Lathe Set Up Operator Relationship Specialty Start Date End Date Gary Benedict MD [address] [place] [phone] PCP - General Internal Medicine 11/15/19 documented as of this encounter
--- OUTSIDE RECORDS SUMMARY | 2024-09-26 09:04 | XMS_ITS | Encounter Summary ---
Author Organization [employer] Address [address] [place] [address] 7 [place] [address] Care Team Providers Care Hospitality Manager Name Role Phone Unavailable Primary Care Provider Unavailabl e Encounter Details Date Type Department Care Team (Late st Contact Info) Description 11/03/2023 Orders Only [facility] [address] [place] [phone] Yanet García RN Uncomplicated opioid dependence (CMS/HCC) [...] Description 10/28/2024 1:00 PM EDT Clinical Support [address] [address] Yanet García RN Scheduled Orders Name Type Priority Associated Diagnoses [...] Syphilis Screen Lab Routine Uncomplicated opioid dependence (CMS/HCC) Expected: 11/03/2023 (Approximate), Expires: 11/02/2024 T-SPOT??.TB Lab Routine Uncomplicated opioid dependence (CMS/HCC) Expected: 11/03/2023 (Approximate), Expires: 11/02/2024 documented as of this encounter Visit Diagnoses Diagnosis Uncomplicated opioid dependence (CMS/HCC) documented in this encounter
--- OUTSIDE RECORDS SUMMARY | 2024-09-26 09:04 | XMS_ITS | Encounter Summary ---
Author Organization [employer] Address [address] [facility] [address] 7t [place] [address] Care Team Providers Care Line Crew Supervisor Name Role Phone Unavailable Primary Care Provider Unavailabl e Encounter Details Date Type Department Care Team (Late st Contact Info) Description 06/12/2023 Orders Only [facility] [address] [place] [address] Jose Alberto Mojica MD 230 [place] [address] Social History Tobacco Use Types Packs/Day Years [...] Description 10/28/2024 1:00 PM EDT Clinical Support [facility] [address] [place] [address] Yanet García RN documented as of this encounter Visit Diagnoses Not on filedocumented in this encounter
--- OUTSIDE RECORDS SUMMARY | 2024-09-26 09:04 | XMS_ITS | Encounter Summary ---
Author Organization [employer] Address [address] [place] [address] 7 [place] [address] Care Team Providers Care Design Manager Name Role Phone Unavailable Primary Care Provider Unavailabl e Encounter Details Date Type Department Care Team (Late st Contact Info) Description 09/30/2022 Orders Only [address] [address] Yanet García RN Uncomplicated opioid dependence (CMS/HCC) [...] Description 10/28/2024 1:00 PM EDT Clinical Support [address] [address] Yanet García RN Scheduled Orders Name Type [...] TB GOLD Lab Routine Uncomplicated opioid dependence (CMS/HCC) Expected: 09/30/2022 (Approximate), Expires: 10/01/2023 RPR (Monitor) with Reflex to??Titer Lab Routine Uncomplicated opioid dependence (CMS/HCC) Expected: 09/30/2022 (Approximate), Expires: 10/01/2023 documented as of this encounter Visit Diagnoses Diagnosis Uncomplicated opioid dependence (CMS/HCC)- Primary documented in this encounter
--- OUTSIDE RECORDS SUMMARY | 2024-09-26 09:04 | XMS_ITS | Encounter Summary ---
Author Organization [employer] Address [address] [place] [address] [address] [place] [address] Care Team Providers Care Online Affiliate Marketing Manager Name Role Phone Unavailable Primary Care Provider Unavailabl e Reason for Visit * Reason Comments Med Refill Encounter Details Date Type Department Care Team (Late st Contact Info) Description 07/13/2022 Refill [facility] [address] [place] [address] [phone] Jose Alberto Mojica MD 230 [place], [place] [phone] Opioid dependence, uncomplicated (CMS/HCC) Social History Tobacco [...] Description 10/28/2024 1:00 PM EDT Clinical Support [facility] [address] [place] [address] [phone] Yanet García, EMMA documented as of this encounter Visit Diagnoses Diagnosis Opioid dependence, uncomplicated (CMS/HCC) documented in this encounter
--- OUTSIDE RECORDS SUMMARY | 2024-09-26 09:04 | XMS_ITS | Clinical Summary ---
Author Organization [facility] Address [address] [place] [address] Care Team Providers Care Air Chipper Name Role Phone Gary Benedict MD Primary Care Provider [phone] Allergies Active Allergy Reactions Criticality Noted Date [...] age to complete this topic Care Teams Air Chipper Relationship Specialty Start Date End Date Gary Benedict MD PCP - General Internal Medicine 02/11/20
--- OUTSIDE RECORDS SUMMARY | 2024-09-26 09:04 | XMS_ITS | Clinical Summary ---
Author Organization [employer] Address [address] [place] [address] 7t [place] [address] Care Team Providers Care Drug Discovery Informatics Specialist Name Role Phone Unavailable Primary Care Provider [...] constipation 60 tablet 11 02/14/20 24 Active lidocaine (Lidoderm) 5 % patch Apply 2 patches topically Once per day. Remove & discard patch within 12 hours or as directed by MD. 60 patch 3 08/19/19 25 026 Active docusate sodium (Colace) 100 MG capsule Take 1 capsule (100 mg) by mouth if needed in the morning and at bedtime for constipation. 60 capsule 5 08/19/19 25 026 Active Buprenorphine HCl-Naloxone HCl (Suboxone) 8-2 MG SL filmIndications:O pioid dependence, uncomplicated (CMS/HCC) Place 1 Film under the tongue 3 times daily. Do not start before August 27, 2024. 84 Film 1 08/28/19 25 025 Active Active Problems Problem Noted Date Diagnosed Date Alcohol dependence 10/31/2022 Major depressive disorder 10/31/2022 Uncomplicated opioid dependence 10/31/2022 Rheumatoid arthritis 10/31/2022 Cervical disc disease 10/31/2022 Encounters Date Type Department Care Team Description 09/02/2024 1:00 PM EDT Telemedicine [facility]INE [address] [place] [address] Jose Alberto Mojica MD Uncomplicated opioid dependence (CMS/HCC) (Primary Dx) 09/02/2024 Travel 08/19/2024 Refill [facility] [address] [place] [address] Yanet García RN Opioid dependence, uncomplicated (CMS/HCC) 08/19/2024 Orders Only [facility] [address] [place] [address] Jose Alberto Mojica MD Constipation, unspecified constipation type 07/08/2024 11:00 AM EST Clinical Support [facility] [address] [place] [address] Yanet García RN Uncomplicated opioid dependence (CMS/HCC) (Primary Dx) 07/08/2024 Travel 07/01/2024 Refill [facility] [address] [place] [address] Yanet García RN Opioid dependence, uncomplicated (CMS/HCC) 07/01/2024 Refill [facility] [address] [place] [address] Yanet García RN Opioid dependence, uncomplicated ([facility]/HCC) from Last 3 Months Social History Tobacco [...] Description 10/28/2024 1:00 PM EDT Clinical Support [facility] [address] [place] [address] Yanet García, EMMA Health Maintenance Due Date Last Done Comments Depression Screening 1981 Lipid Panel 1981 SDOH Screening 1981 Alcohol/Substance Use Screening 1993 Family Planning (PISQ) 1996 Hepatitis B Vaccines (2 of 3 - 19+ 3-dose series) 11/19/2012 10/22/2012 COVID-19 Vaccine (3 - 2023- season) 2024 07/13/2021, 10/08/2020 Influenza Vaccine (#1) 2024 , 03/07/2022, 06/07/2021, Additional history exists Tobacco Screening 09/02/2025 09/02/2024 Zoster Vaccines (1 of 2) 2031 DTaP/Tdap/Td [...] / Unknown 07/08/2024 11:01 AM EST Key Thoams MD POINT OF CARE TEST ENTER/NOHEMY T ORDERABLES Final Result * HEPATITIS C AB W/REFL TO HCV RNA, QN, PCR (10/04/2021 1:28 PM EDT) HEPATITIS C ANTIBODY NON-REACT MODE NON-REACT MODE [facility] INDEX 0.01 <1.00 [facility] Comment: ?? HCV antibody was non-reactive. There is no laboratory ?? evidence of HCV infection. ?? In most cases, no further action is required. However, if recent HCV exposure is suspected, a test for HCV RNA (test code 09875) is suggested. ?? For additional information please refer to http://education.[employer]te Software/faq/EVI85x7 (This link is being provided for informational/ educational purposes only.) ?? 10/04/2021 1:28 PM EDT Jose Alberto Mojica MD HISTORICAL/NON ORDERABLE LABS Fi nal Result Performing Organization Address [facility] de Phone Number [facility] [address] * HIV 1/2 ANTIGEN/ANTIBODY,FOURTH GENERATION W/RFL (10/04/2021 1:28 PM EDT) HIV-1/2 ANTIGEN AND ANTIBODIES, 4TH GENERATION W/ REFLEX NON-REACT MODE NON-REACT MODE [facility] Comment: HIV-1 antigen and HIV-1/HIV-2 [...] ? For additional information please refer to http://education.[employer]/faq/QPY149 (This link is being provided for informational/ educational purposes only.) ? The performance of this assay has not been clinically validated in patients less than 2 years old. ?? 10/04/2021 1:28 PM EDT Jose Alberto Mojica MD LAB BLOOD ORDERABLES Final Resul t Performing Organization Address [facility] Phone Number [facility] [address] from Last 3 Months or Most Recently Relevant to Health Maintenance Insurance [facility] NAVIGATE [facility] , [address] [place] [address]
--- OUTSIDE RECORDS SUMMARY | 2024-09-26 09:05 | XMS_ITS | Encounter Summary ---
Author Organization [employer] Address [address] [place] [address] 7 [place] [address] Care Team Providers Care Brine Tank Tender Name Role Phone Unavailable Primary Care Provider Unavailabl e Reason for Visit * Reason Onset Date Comments Med Refill 12/10/2022 Encounter Details Date Type Department Care Team (Late st Contact Info) Description 12/10/2022 Refill [facility] [address] [place] [address] Jose Alberto Mojica MD [address] [place] [address] [phone] Opioid dependence, uncomplicated (CMS/HCC) Social History Tobacco [...] Description 10/28/2024 1:00 PM EDT Clinical Support [facility] [address] [place] [address] Yanet García RN documented as of this encounter Visit Diagnoses Diagnosis Opioid dependence, uncomplicated (CMS/HCC) documented in this encounter
--- OUTSIDE RECORDS SUMMARY | 2024-09-26 09:05 | XMS_ITS | Clinical Summary ---
Author Organization [address] Address [address] [place] [address] Phone Care Team Providers Care Screen Printing Inspector Name Role Phone Gary Benedict MD Primary Care Provider [phone] Allergies Active Allergy Reactions Criticality Noted Date Comments Codeine Other,GI intolerance Low 11/27/2009 Stomach pain Medications ibuprofen (ADVIL,MOTRIN) 600 mg tablet Take 800 mg by mouth every 6 (six) hours as needed for pain. Active desvenlafaxine succinate (PRISTIQ) 100 mg 24 hr tablet 4 Active docusate sodium (COLACE) 100 mg capsule [...] by mouth every 2 hours as needed. 4 Active diclofenac (VOLTAREN) 50 mg EC tablet [...] day. for 90 days 90 each 3 4 Active sildenafiL (VIAGRA) 100 mg tablet START WITH 1/2 TABLET AND INCREASE TO 1 TABLET NEEDED 30-60 MINUTES BEFORE INTERCOURSE, MAX OF 1 PER DAY 10 tablet 1 5 Active betamethasone valerate (VALISONE) 0.1 % cream APPLY SPARINGLY TO THE AFFECTED AREA ON HANDS TWICE DAILY 30 g 2 5 Active atorvastatin (LIPITOR) 10 mg tablet Take 1 tablet (10 mg total) by mouth at bedtime. 90 each 1 5 07/31/19 26 Active phentermine 15 mg capsuleIndicati ons:Class 1 obesity due to excess calories with body mass index (BMI) of 30.0 to 30.9 in adult, unspecified whether serious comorbidity present Take 1 capsule (15 mg total) by mouth 2 (two) times a day. Max Daily Amount: 30 mg 60 each 2 5 12/05/19 25 Active phentermine 15 mg capsuleIndicati ons:Class 1 obesity due to excess calories without serious comorbidity with body mass index (BMI) of 31.0 to 31.9 in adult Take 1 capsule (15 mg total) by mouth 2 (two) times a day. Max Daily Amount: 30 mg 60 each 5 09/06/19 25 Discontinu ed(Reorder ) Active Problems Problem Noted Date Diagnosed Date [...] (gastroesophageal reflux disease) 7 Overview (04/12/2024): EGD 2015 normal Anxiety 06/10/2016 PLMD (periodic limb movement [...] Encounters Date Type Department Care Team Description 09/05/2024 11:00 AM EDT Office Visit Bariatric Surgery - [address] [place] [address] Kirsten Vegas MD Class 1 obesity due to excess calories with body mass index (BMI) of 30.0 to 30.9 in adult, unspecified whether serious comorbidity present (Primary Dx) from Last 3 Months Immunizations [...] TEETH EXTRACTION OTHER SURGICAL HISTORY 10/16/2014 PROCEDURE: NM ESOPHAGOSCOPY FLEXIBLE TRANSORAL WITH BIOPSY; COMMENT: Visually normal; esoph bx: normal KNEE ARTHROSCOPY 05/02/2016 Right PROCEDURE: NM ARTHROSCOPY KNEE DIAGNOSTIC W/WO SYNOVIAL BX SPX; COMMENT: Dr. Kirby MOUTH SURGERY PROCEDURE: ORAL SURGERY PROCEDURE; COMMENT: soft palate- 2019 CARPAL TUNNEL RELEASE 2013 Bilateral PROCEDURE: NM NEUROPLASTY &/TRANSPOS MEDIAN NRV CARPAL TUNNE SHOULDER SURGERY 2011 Left PROCEDURE: HISTORICAL SHOULDER SURGERY; COMMENT: bone spurs LITHOTRIPSY Left PROCEDURE: HISTORICAL LITHOTRIPSY Medical History Medical History Date Comments Rheumatoid arthritis involvi ng knee ([facility]) DX:Rheumatoid arthritis involving knee (HCC) Opiate abuse, episodic (CMS/HCC) DX:Opiate abuse, episodic ([facility]) Knee pain DX:Knee pain GERD (gastroesophageal [...] use disorder Rheumatoid arthritis involvi ng knee ([facility]/HCC) 05/08/2018 DX:Rheumatoid arthritis involving knee (HCC); COMMENT: Recurrent swelling and pain since Family [...] Sign Reading Time Taken Comments Blood Pressure 139/76 09/05/2024 11:09 AM EDT Pulse 74 09/05/2024 11:09 AM EDT Temperature 36.6 ??C (97.8 ??F) 09/05/2024 11:09 AM E DT Respiratory Rate - - Oxygen Saturation 96% 06/20/2024 11:51 AM EST Inhaled Oxygen Concentration - - Weight 90.7 kg (200 lb) 09/05/2024 11:09 AM EDT Height 172.7 cm (5' 8 ) 09/05/2024 11:09 AM EDT Body Mass Index 30.41 09/05/2024 11:09 AM EDT Plan of Treatment Upcoming Encounters Date Type Department Care Team (Late st Contact Info) Description 11/26/2024 4:00 PM EDT Office Visit Adult Medicine [facility] [address] [place] [address] Gary Benedict MD [address] [place] [address] 12/03/2024 8:30 AM EDT Office Visit Bariatric Surgery - [place] [address] [facility] [address] [place] [phone] Kirsten Vegas MD [address] [facility] [address] [place] [address] 12/19/2024 10:30 AM EDT Office Visit [facility] - [place] [address] [facility] [address] [place] [phone] Marianna Kincaid MD [address] [facility] [address] [place] [phone] Health Maintenance Due Date Last Done Comments Hepatitis B Vaccines (2 of 3 - 19+ 3-dose series) 11/19/2012 10/22/2012 COVID-19 Vaccine (3 - Moderna risk series) 08/10/2021 07/13/2021, 10/08/2020 Depression Screening 06/03/2022 Social Influencers of Health Screening 06/03/2022 Influenza Vaccine (Season Ended) 2025 04/07/2023, 03/07/2022, 06/07/2021, Additional history exists Cholesterol Screening (Lipid Panel) 09/16/2029 09/16/2024, 08/25/2023 DTaP,Tdap,and Td Vaccines (3 - Td or Tdap) 08/16/2032 08/16/2022, 02/03/2011 Hepatitis A Vaccines Aged Out 10/22/2012 No long er eligible based on patient's age to complete this topic Hepatitis C Screening Completed 07/25/2020 HIV Screening [...] Procedure Name Priority Date/Time Associated Diagnosis Comments LIPID PANEL WITH REFLEX TO DIRECT LDL Routine 09/16/2024 8:58 AM EDT Hypercholesteremia HEMOGLOBIN A1C Routine 09/16/2024 8:58 AM EDT Class 1 obesity due to excess calories with body mass index (BMI) of 30.0 to 30.9 in adult, unspecified whether serious comorbidity present EXTERNAL CLINICAL LAB 08/29/2024 EXTERNAL CLINICAL LAB 08/29/2024 EXTERNAL XRAY REPORT 07/25/2024 HEPATITIS C SCREENING Routine 07/25/2020 HIV SCREENING Routine 06/18/2019 from Last 3 Months or Most Recently Relevant to Health Maintenance Results * (ABNORMAL) Lipid panel with reflex to direct LDL (09/16/2024 8:58 AM EDT) Cholesterol 195 0 - 200 mg/dL LAB CHEMISTRY METHOD 09/16/2024 1:35 PM EDT [facility] Triglycerides 120 0 - 150 mg/dL LAB CHEMISTRY METHOD 09/16/2024 1:35 PM EDT [facility] HDL 58 >=40 mg/dL LAB CHEMISTRY METHOD 09/16/2024 1:35 PM EDT [facility] LDL Calculated 113(H) 0 - 100 mg/dL LAB CHEMISTRY METHOD 09/16/2024 1:35 PM EDT [facility] VLDL Cholesterol Aleksandar 24 mg/dL LAB CHEMISTRY METHOD 09/16/2024 1:35 PM EDT [facility] Non HDL Chol. (LDL+VLDL) 137 <145 mg/dL LAB CHEMISTRY METHOD 09/16/2024 1:35 PM EDT [facility] Chol/HDL Ratio 3.4 0.0 - 4.4 LAB CHEMISTRY METHOD 09/16/2024 1:35 PM EDT [facility] Blood Venous blood specimen / Unknown Venipuncture / Unknown 09/16/2024 8:58 AM EDT 09/16/2024 8:58 AM EDT us Gary Benedict MD LAB BLOOD ORDERABLES Final Resu lt [facility] [address] [place] [address], * Hemoglobin A1c (09/16/2024 8:58 AM EDT) Hemoglobin A1C 5.6 <6.5 % LAB CHEMISTRY METHOD 09/16/2024 1:08 PM EDT [facility] Mean Bld Glu Estim. 114 mg/dL LAB CHEMISTRY METHOD 09/16/2024 1:08 PM EDT [facility] Blood Venous blood specimen / Unknown Venipuncture / Unknown 09/16/2024 8:58 AM EDT 09/16/2024 8:58 AM EDT Kirsten Vegas MD LAB BLOOD ORDERABLES Final R esult [facility] [address] [place] [address], [place] [phone] * External clinical lab (08/29/2024) Only the most recent of2 resultswithin the time period is included. Provider [facility] LAB BLOOD ORDERABLES Fin al Result * External Xray Report (07/25/2024) Anatomical Region Laterality Modality Radiographic Charissa ging Provider [facility] IMG XR PROCEDURES Final Result * Hepatitis C Screening (07/25/2020) Hepatitis C Screening abstracted Historical Provider HEALTH MAINTENANCE Edited Result - Final * HIV Screening (06/18/2019) HIV Screening abstracted Historical Provider HEALTH MAINTENANCE Edited Result - Final from Last 3 Months or Most Recently Relevant to Health Maintenance [place] [place] [id number] [facility] Care Teams Screen Printing Inspector Relationship Specialty Start Date End Date Gary Benedict MD [address] [place] [phone] PCP - General Internal Medicine 11/15/19
--- OUTSIDE RECORDS SUMMARY | 2024-09-26 09:05 | XMS_ITS | Encounter Summary ---
Author Organization [employer] Address [address] [facility] [address] [place] [address] Care Team Providers Care Dance Critic Name Role Phone Unavailable Primary Care Provider Unavailabl e Encounter Details Date Type Department Care Team (Late st Contact Info) Description 08/19/2024 Orders Only [facility] [address] [place] [phone] Jose Alberto Mojica MD [address] [place] [address] Constipation, unspecified constipation type Social History Tobacco Use Types Packs/Day Years [...] Description 10/28/2024 1:00 PM EDT Clinical Support [facility] [address] [place] [id number] Yanet García RN documented as of this encounter Visit Diagnoses Diagnosis Constipation, unspecified constipation type documented in this encounter
== END 2024-09-26 09:21 | disposition home or self-care (01) ==
LOC: HO.HNS 08:54
PROVIDERS: PCP Internal Medicine; Visit Provider Physician Assistant
DX: Z98.1 Arthrodesis status (principal)
CPT/HCPCS: 99024

== ENCOUNTER 2024-09-26 08:53 | Outpatient (REF) | payer OTHER, SELFPAY ==
--- NOTE | ~2024-09-26 | XR_ITS ---
CLINICAL HISTORY: Z90.89 - Acquired absence of other organs 4 views cervical spine Comparison: None Findings: Normal alignment. Alignment is maintained with flexion and extension positioning. No acute fractures or dislocation. No significant degenerative change. Iatrogenic findings with surgical material is noted at C5-C6. Prevertebral soft tissues within normal limits. IMPRESSION: No acute findings. This document has been electronically signed by: Ismael Catherine MD on 09/28/2024 07:54:02
== END 2024-09-26 08:54 | disposition home or self-care (01) ==
LOC: HO.HOSX 08:53
PROVIDERS: PCP Internal Medicine; Visit Provider Physician Assistant
DX: Z09 Encounter for follow-up examination after completed treatment for conditions other than malignant neoplasm (principal); Z90.89 Acquired absence of other organs; Z87.39 Personal history of other diseases of the musculoskeletal system and connective tissue
CPT/HCPCS: 72050

== ENCOUNTER → 2024-09-26 08:57 | Outpatient (BNV) | payer OTHER, SELFPAY | PROVIDERS: PCP Internal Medicine; Visit Provider Specialist | DX: Z90.89 Acquired absence of other organs (principal) | CPT/HCPCS: 72050 ==

== ENCOUNTER 2024-12-25 09:00 | Outpatient (RCR) | payer OTHER, SELFPAY ==
--- NOTE | 2024-10-22 11:57 | MHC.PT.EP ---
[facility] [place] Office [place] Office [place] Office [address] Andrew Renae [address] [phone] F: [phone] F: [phone] F: [phone] F: [phone] Physical Therapy Plan of Care Date of Evaluation: 10/22/24 Date of Surgery: 07/25/24 Diagnosis: s/p 07/25 cervical spinal arthrodesis Assessment: Patient is a 44 year old R handed male who presents with s/s consistent with s/p 07/25 cervical spine arthrodesis, neck pain. 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 Patient past medical history includes 2 neck surgeries. Current impairments include pain, posture, ROM, strength, activity tolerance and functional mobility. Functional limitations include decreased ability to sleep, lift, carry, push, pull, turn head perform repetitive activities, and dress. Patient is motivated with good rehab potential. Skilled PT will address impairments and functional limitations in order to achieve goals. Frequency and Duration: The patient will be seen 2x/week for 5 weeks Short Term Goals: I with HEP -2 weeks LS TrP absent - 3 weeks AROM rotation to 58 - 3 weeks Max pain with ADLs 3/10 - 3 weeks Gas Plant Specialist Goals: NPDI 10% or less -5 weeks AROM rotation to 64 b/l - 5 weeks Max pain with aDLS 1/10 - 5 weeks Flex/ext arc 78 (68 on eval) - 5 weeks Treatment Plan: Modalities to reduce pain, spasms and effusion. Manual therapy to restore motion and function. Therapeutic exercise to improve strength and flexibility. Neuromuscular re-education for posture and balance. Therapeutic activities to return to functional activities of daily living. Electronically signed by: Jose Alberto Costello, PT Please sign and return to therapist. Thank you for your referral.
--- NOTE | 2025-01-03 06:50 | MHC.PT.DC ---
[facility] [place] Office [place] Office [place] Office [address] Andrew Renae [address] [phone] F: [phone] F: [phone] F: [phone] F: [phone] Physical Therapy Discharge Report Diagnosis: s/p 07/25 cervical spinal arthrodesis Date of Surgery: 07/25/24 Date of Evaluation: 10/22/24 Date of Discharge: Treatments to Date: 8 Cancellations to Date: No Shows to Date: Discharge Status: Improved Function Independent with HEP Discharge Summary: 12/25/24: I with HEP. AROM rotation progression. Max pain with aDLs 08/05. Flexion Ext arc 75. Denies LIMON for 2+ weeks. Pt has updated HEP And is appropriate to d/c to HEP at this time. 12/11/24: pt has been feeling better overall but did have a LIMON over the weekend. given ex for CT junction stretching. good response. 12/04/24: pt progressing well with skilled PT. no adverse reactions from above program. progressing posture and pt has less s/s, LIMON and tissue tension. 11/27/24: pt educated thoroughly on posture and purpose for stretching and postural exercises. given bands with edu on use for postural exercise. 11/20; Pt L Ut density in tisue relief after manual RX. 11/13/24: pt had LIMON over the weekend he thinks from work. we did add stretching and update HEP. assess response and progress as tolerated. 11/06/24: pt has been feeling better overall with skilled PT. no adverse reactions. added ROM and strength. no adverse reactions. issue HEP NV. Patient is a 44 year old R handed male who presents with s/s consistent with s/p 07/25 cervical spine arthrodesis, neck pain. 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 Patient past medical history includes 2 neck surgeries. Current impairments include pain, posture, ROM, strength, activity tolerance and functional mobility. Functional limitations include decreased ability to sleep, lift, carry, push, pull, turn head perform repetitive activities, and dress. Patient is motivated with good rehab potential. Skilled PT will address impairments and functional limitations in order to achieve goals. Electronically signed by: Jose Alberto Costello PT Please sign and return to therapist. Thank you for your referral.
== END 2025-01-03 06:51 | disposition home or self-care (01) ==
LOC: HO.PTCHIC 09:00
PROVIDERS: PCP Internal Medicine; Visit Provider Physician Assistant
DX: M25.512 Pain in left shoulder (principal); Z98.1 Arthrodesis status
CPT/HCPCS: 97110; 97140; 97162